=== PATIENT | female | born 1950 | race Caucasian/White ===

== ENCOUNTER → 2017-02-13 | Outpatient (CLI) | payer MEDICARE, BC, OTHER ==
[~2017-02-13] MED LIST: ASPI1TAB PO; CALCTAB29 PO; FLEC1TAB PO; FOSA70TA PO; GABA-282 PO; METO1TAB32 PO; MULT1TAB10 PO; PERC5TAB12 PO
--- NOTE | 2017-02-13 10:22 | REP ---
Chest two views HISTORY: preadmission Comparison: 07/23/2016 Minimal bilateral apical pleural thickening is present. The lungs are otherwise clear. The heart is normal in size. The pulmonary vasculature is normal in appearance. The bony structure is intact. IMPRESSION: No acute disease. Signed by Akin Soriano MD 02/13/2017 10:13 A
[2017-02-13 11:32] LABS: ANION GAP 9 MEQ/L (8-16); BLOOD UREA NITROGEN 20 MG/DL (7-18); CALCIUM LEVEL 9.5 MG/DL (8.8-10.2); CARBON DIOXIDE LEVEL 30 MEQ/L (21-32); CHLORIDE LEVEL 106 MEQ/L (98-107); GLOMERULAR FILTRATION RATE > 60.0 (>45); GLUCOSE, FASTING 79 MG/DL (80-110); POTASSIUM SERUM 4.2 MEQ/L (3.5-5.1); SODIUM LEVEL 145 MEQ/L (136-145)
== END ==
LOC: M LAB 09:37
PROVIDERS: ATTEND Orthopaedic Surgery
DX: Z01.818 Encounter for other preprocedural examination (principal); I51.9 Heart disease, unspecified

== ENCOUNTER 2017-02-27 07:41 | Inpatient (IN) | payer MEDICARE, BC, OTHER ==
--- NOTE | 2017-02-20 13:24 | HPE ---
DATE OF ADMISSION: 02/27/2017 Arrives today for preoperative history and physical for her continuing back discomfort and left leg radicular symptoms with neuro claudication. HISTORY OF PRESENT ILLNESS: This is a pleasant female with continuing back discomfort and left leg radiculopathy with known spinal stenosis and left lower extremity neuro claudication. The patient has consented for a left unilateral laminectomy L3-[address] Levar Parham. Medical optimization per Dr. [facility] group, which I am still awaiting documentation, but the patient states she has been cleared. States that she has also been cleared by cardiology. Her x-ray imaging is consistent with degenerative scoliosis, spondylosis and degenerative disc disease. MRI of the lumbar spine through [facility], 12/18/2016, showed severe canal stenosis at L3-4 with left paracentral intraforaminal disc extrusion causing left L3 nerve compression. ALLERGIES: NONE KNOWN TO DRUGS. MEDICATION LIST: Includes: - gabapentin 300 mg - Fosamax 70 mg - aspirin 81 mg - calcium plus D 315-200 mg unit - multivitamins - flecainide acetate 100 mg - metoprolol succinate ER 25 mg MEDICAL PROBLEM LIST: Includes: 1. Hypertension. 2. History of supraventricular tachycardia and chronic diastolic heart failure for which she was cleared by cardiology. This was cleared by Dr. Singleton. 3. Additionally, she has continuing low back discomfort with left leg neuro claudication with a history spinal stenosis. SURGICAL HISTORY: section, femoral hernia repair. FAMILY HISTORY: Positive for cancer, arthritis, hypertension, hypercholesteremia. SOCIAL HISTORY: She has never smoked, rarely consumes ethanol. Denies illicit drugs. REVIEW OF SYSTEMS: Denies chest pain, shortness of breath, dyspnea on exertion, fever, chills, malaise, upper respiratory, urinary tract symptoms. PHYSICAL EXAMINATION: Weight 168.8. Height 5, 7-1/4. Temperature 97.3. Blood pressure (BP) 118/72. Heart rate 76. Respirations 16. She is a pleasant, overweight, white female, in no acute distress. Alert and oriented times three. Mood and affect are appropriate. She is ambulating slow steady with favoring of the right lower extremity. No gross antalgia about the left. No gross deformities about the lower spine and lower extremities. Positive straight leg raise for pain and hamstring tension. Normocephalic. Lungs clear to auscultation. Chest rises symmetrically. Neck supple. Negative jugular venous distention (JVD) or bruits. Bowel sounds times four are soft, nontender. IMPRESSION: 1. Continuing symptomatic low back discomfort with L3-4 spinal stenosis left lower extremity, neuro claudication. 2. Patient consented for a left lumbar unilateral laminectomy L3-[address] Levar Parham/ 3. Medical optimization 02/18/2017, per Dr. Tejinder Heart, per patient, I am still awaiting physical documentation. 4. Cardiology clearance, per Dr. Singleton's office, which I did visualize. 5. Postoperative spine protocol. MTDD
[~2017-02-27] VITALS: Ht 172.7 cm; Wt 78.9 kg
[~2017-02-27 07:41] MED LIST changes: -PERC5TAB12 PO
[2017-02-27] MEDS ORDERED: ROCURONIUM BROMIDE 50 MG/5 ML VIAL/SYRINGE As Ordered ONE ×2 (08:45→11:55)
[2017-02-27] MEDS ORDERED: fentaNYL 100 MCG/2 ML INJECTION (J3010) As Ordered ONE (08:45)
[2017-02-27] MEDS ORDERED: dexameTHASONE 4 MG/ML 1ML VIAL (J1100) As Ordered ONE (08:45)
[2017-02-27] MEDS ORDERED: PROPOFOL 200 MG/20 ML VIAL As Ordered ONE (08:45)
[2017-02-27] MEDS ORDERED: LIDOCAINE 2% INJ 100 MG/5 ML SDV (FOR ANES.) As Ordered ONE (08:45)
[2017-02-27] MEDS ORDERED: MIDAZOLAM INJ 2 MG/2 ML VIAL (J2250) As Ordered ONE (08:46)
[2017-02-27] MEDS: METAMUCIL (PSYLLIUM) PACKET PO SCH (09:00)
[2017-02-27] MEDS: MOM 30ML SUSPENSION UDC PO SCH (09:00)
[2017-02-27] MEDS ORDERED: GABAPENTIN 300 MG CAP PO ONE (09:00)
[2017-02-27] MEDS ORDERED: PERCOCET 5MG/325MG TAB PO ONE (09:00)
[2017-02-27] MEDS ORDERED: CelecoXIB (CeleBREX) 100 MG CAP PO ONE (09:00)
[2017-02-27] MEDS ORDERED: BUPIVACAINE/EPIN 0.5% 30 ML VIAL As Ordered ONE (10:16)
[2017-02-27] MEDS ORDERED: BACITRACIN PWD 50,000 UNITS VIAL As Ordered ONE (10:16)
[2017-02-27] MEDS ORDERED: THROMBIN SOLN 20,000 UNITS KIT As Ordered ONE (10:16)
[2017-02-27] MEDS ORDERED: VANCOMYCIN HCL 500 MG/10 ML VIAL (J3370) As Ordered ONE (10:16)
[2017-02-27] MEDS ORDERED: ePHEDrine SULFATE 25 MG/5 ML(5MG/ML) SYRINGE As Ordered ONE ×2 (10:59→12:24)
[2017-02-27] MEDS ORDERED: BUPIVACAINE/EPIN 0.25% 30 ML VIAL As Ordered ONE (11:05)
[2017-02-27] MEDS ORDERED: GLYCOPYRROLATE INJ 0.2 MG/ML 2 ML VIAL As Ordered ONE ×2 (11:33→12:15)
[2017-02-27] MEDS ORDERED: PHENYLEPHRINE INJ 10MG/ML VIAL (J2370) As Ordered ONE (13:01)
[2017-02-27] MEDS ORDERED: PHENYLephrine HCL 500 MCG/5 ML (100MCG/ML) SYRINGE (J2370) As Ordered ONE (13:04)
[2017-02-27] MEDS ORDERED: HYDROmorphone HCL 2 MG/ML 1ML VIAL (J1170) As Ordered ONE (13:33)
[2017-02-27] MEDS ORDERED: ONDANSETRON 4MG/2ML VIAL (J2405) As Ordered ONE (13:33)
[2017-02-27] MEDS ORDERED: ONDANSETRON 4MG/2ML VIAL (J2405) IV PRN (15:00)
[2017-02-27] MEDS ORDERED: LR 1,000 ML IV SCH (15:00)
[2017-02-27] MEDS ORDERED: fentaNYL 100 MCG/2 ML INJECTION (J3010) IV PRN (15:00)
[2017-02-27] MEDS ORDERED: ACETAMINOPHEN TAB 650MG DOSE (2X325MG) PO PRN (15:15)
[2017-02-27] MEDS ORDERED: PROMETHAZINE INJ 25 MG/ML VIAL (J2550) IV PRN (15:15)
[2017-02-27 15:45] VITALS: BP 144/80
[2017-02-27] MEDS: D5W/0.45% SODIUM CHLORIDE 1,000 ML IV SCH (15:48)
[2017-02-27] MEDS: PERCOCET 5MG/325MG TAB PO PRN (15:48)
[2017-02-27] MEDS ORDERED: HYDROmorphone HCL 1 MG/ML SYRINGE (J1170) IV PRN ×2 (16:00)
[2017-02-27 16:15] VITALS: BP 121/57
[2017-02-27 17:15] VITALS: BP 126/72
[2017-02-27 18:15] VITALS: BP 128/72
--- NOTE | 2017-02-27 19:07 | RO ---
DATE OF PROCEDURE: 02/27/2017 PREOPERATIVE DIAGNOSIS: Lumbar spinal stenosis with left lower extremity, primarily neurogenic claudication and facet arthropathy at L3-L4. POSTOPERATIVE DIAGNOSIS: Lumbar spinal stenosis with left lower extremity, primarily neurogenic claudication and facet arthropathy at L3-L4. PROCEDURE PERFORMED: L3 unilateral laminectomy including decompression of the thecal sac traversing and exiting nerve roots and contralateral over the horizon decompression, L4 left unilateral laminectomy additional level, L3-4 arthrodesis intertransverse posterior type, harvest and placement of left iliac crest morselized autograft through separate fascial incision, use of donor bone graft allograft morselized crushed cancellous 15 mL. SURGEON: Dr. Parham STAGE SETTING PAINTER APPRENTICE: Danny Alberts, TAMRA ANESTHESIA: General. ESTIMATED BLOOD LOSS: Less than 150 mL replaced with crystalloid. COMPLICATIONS: No complications. INDICATION: 66-year-old female with a discomfort radiating down primarily the left lower extremity along with significant facet arthropathy and spinal stenosis at 3-4 as well as milder diffuse degenerative changes. She has elected for operative intervention. Consent reviewed in detail with the patient including a rickey discussion of the pathology involved the procedure proposed and the rationale for the procedure proposed, alternatives including doing a wider surgery or using instrumentation for the fusion. We talked about risks including but not limited to pain, failure, infection, bleeding blood loss, incomplete relief of symptoms, need for additional surgery. Nerve injury and other issues. The patient agreed to proceed. OPERATIVE COURSE: Identified in the holding area, site and side verified brought to the operating room. General endotracheal anesthesia was administered. She was positioned in the usual fashion on the Maxime frame for exposure of the lumbar spine. Next, once I and the solar installer pv were comfortable with the patient's positioning, we began this and the operative procedure. Time-out was accomplished. I stood on the patient's left. Mr. Alberts primarily on the patient's right. The incision was based on palpation of the iliac crest and posterior elements. The incision was outlined with a marking pen infiltrated with 0.25% Marcaine with epinephrine and made a #10 blade knife. This first portion of the procedure was accomplished using a headlamp and loupe magnification. The dissection continued to the posterior lumbar fascia which was reflected off spinous processes of L3 and L4 down to the L3-4 interspace exposing the L3-4 lamina. That is on the left side. Next, the drill was utilized to create a divot in the posterior lamina of L3. Wood Todd probe was placed in the divot and then we obtained a cross-table lateral x-ray to verify our position. Next, at this stage we verified the 3-4 level. We extended dissection on the right side at 3-4 over the right facet and exposing the transverse processes on the right side. Shanique Aristeo utilizing the retractor to assist in exposure. The transverse processes on the right at 3 and 4 were exposed. The transverse processes on the left at 3-4 were exposed. Next, once this was accomplished, posterior lamina was removed at its posterior aspect using a Leksell and this was retained for bone graft. Next, at this stage the operating microscope was brought in for additional portion of the procedure. The operating microscope facilitated continued participation by Mr. Alberts as well as safe use of the high-speed bur. The high-speed bur was then utilized to implement the left unilateral laminectomy of L3 extending superiorly well beyond the bare area of L3, undercutting the L3 spinous process and extending into the L4 lamina through the bare area of L4 undercutting the L4 spinous process. I was careful to preserve the pars interarticularis on the left side at 3-4 as I debrided the hypertrophic degenerative facet which was quite mobile. Next, once the bony decompression was accomplished I then utilized curettes and Merritt-Brewer to remove ligamentum flavum exposing the thecal sac and decompressing the thecal sac and in the midline into the left. Once was accomplished I decompressed the lateral recess using #2 Kerrison's as well as curved Kerrison's on the patient's left side. Next, I positioned the operating table to tilt and position the microscope to allow contralateral decompression of horizon. I utilized a 3-0 Chitra curette as well as #2 Kerrison's to remove hypertrophic ligamentum flavum on the right side in the subarticular space. I probed this area and the neural foramina using a Wood Todd probe this was accomplished bilaterally. The decompression was quite significant. We inspected for CSF leak and none were observed. Irrigation was accomplished. Thrombin Gelfoam was placed over the thecal sac and then I turned my attention to obtaining iliac crest bone graft. Iliac crest bone graft was obtained by myself through separate fascial incision over the left iliac crest. This was made with the Bovie cautery while Mr. Alberts retracted with Hiram . Next, the posterior superior iliac spine was closed removed using Leksell. I then utilized Terry curettes to remove cancellus bone. This was set aside. Next, the defect was packed with dry Gelfoam closed with interrupted stitch at the posterior fascia. Next, we again exposed the transverse processes at 3 and 4, first on the patient's left side. Mr. Alberts utilizing Hiram. We decorticated the transverse processes and facet complex with the high-speed bur and placed the iliac crest bone graft. Next, local graft has been harvested and these bur milling were mixed with 15 mL of crushed cancellus bone and a small amount of this was placed over the transverse processes as well on the left. Next, on the right side. We similarly exposed and placed iliac crest bone graft directly over the transverse processes of 3 and 4 on the patients right side. Next, the facet was also decorticated using Leksell and the high-speed bur and we placed the remaining local and donor bone graft over the facette and in the interlaminar space as well on the patient's right. Next, irrigation was accomplished. All Gelfoam was removed at conclusion the case. All counts were correct. Next, posterior lumbar fascia was then reapproximated with interrupted stitch. Deep dermis was approximated with interrupted stitch. Pernio dressing utilized on skin. The patient was moved to the hospital bed in the supine position, extubated, moved to the recovery room in good condition and was appreciated to be in no distress, oriented and moving all four extremities at the conclusion of case for further details please refer to the medical record. Mr. Alberts was present and participated in the entirety of the case in the capacity of registered nurse first assistant.
[2017-02-27 19:15] VITALS: BP 123/63
--- NOTE | 2017-02-27 19:15 | CR ---
DATE OF CONSULTATION: 02/27/2017 PRIMARY CARE PHYSICIAN: Dr. Mann Heart HOSPITALIST: Dr. Jass Ramos ATTENDING PHYSICIAN: Dr. Parham HOSPITALIST CONSULT: Postop patient underwent a spinal surgery today by Dr Parham. Patient is followed by Dr. Mann Heart, [facility] [place]. Medical history most significant for SVT status-post ablation 09/2016. KNIFE SETTER: Chelsea Rivero. The patient was cleared by cardiology on 02/03/2017. She has no postoperative chest pain, shortness of breath, or dyspnea. She feels well. PHYSICAL EXAMINATION: VITALS: Blood pressure 126/72, pulse 77, respiratory rate 14, 97% oxygen saturation. GENERAL: She is alert and conversant. LUNGS: Clear. HEART: Regular rate and rhythm. No murmur. ABDOMEN: Soft and nontender. NEUROLOGIC: Nonfocal. LABS: Preoperative labs. IMPRESSION: Patient is stable postoperatively. History of SVT status-post ablation. I advised continued metoprolol succinate 25 mg daily, flecainide 100 mg twice a day. Followup lab work with electrolytes and magnesium level ordered for the morning. Dr. Ramos with assume her medical care in the morning. I have entered another consultation request so the patient is listed under the correct medical service.
[2017-02-27 20:15] VITALS: BP 130/64
[2017-02-27] MEDS: FLECAINIDE 100 MG TABLET PO SCH (22:03)
[2017-02-27] MEDS: GABAPENTIN 300 MG CAP PO SCH (22:03)
[2017-02-28] MEDS: D5W/0.45% SODIUM CHLORIDE 1,000 ML IV SCH ×2 (03:01→11:15)
[2017-02-28] MEDS: PERCOCET 5MG/325MG TAB PO PRN ×3 (03:01→14:20)
[2017-02-28 07:52] LABS: MEAN CORPUSCULAR HGB CONC 33.9 g/dl (32.0-36.5); MEAN CORPUSCULAR VOLUME 97.3 fl (80.0-96.0); RED CELL DISTRIBUTION WIDTH 12.6 % (11.5-14.5); WHITE BLOOD COUNT 13.6 K/mm3 (4.0-10.0)
[2017-02-28 08:22] LABS: ANION GAP 7 MEQ/L (8-16); BLOOD UREA NITROGEN 10 MG/DL (7-18); CALCIUM LEVEL 8.3 MG/DL (8.8-10.2); CARBON DIOXIDE LEVEL 30 MEQ/L (21-32); CHLORIDE LEVEL 109 MEQ/L (98-107); CREATININE FOR GFR 0.72 MG/DL (0.55-1.02); GLOMERULAR FILTRATION RATE > 60.0 (>45); GLUCOSE, FASTING 114 MG/DL (80-110); MAGNESIUM LEVEL 2.1 MG/DL (1.8-2.4); POTASSIUM SERUM 4.4 MEQ/L (3.5-5.1); SODIUM LEVEL 146 MEQ/L (136-145)
[2017-02-28] MEDS ORDERED: PERC5TAB12 PO (08:22)
[2017-02-28] MEDS: FLECAINIDE 100 MG TABLET PO SCH (08:29)
[2017-02-28] MEDS: GABAPENTIN 300 MG CAP PO SCH (08:32)
[2017-02-28] MEDS: METAMUCIL (PSYLLIUM) PACKET PO SCH (08:33)
[2017-02-28] MEDS: MOM 30ML SUSPENSION UDC PO SCH (08:34)
[2017-02-28] MEDS ORDERED: METOPROLOL SUCC *XL* 25MG TAB (TopROL *XL*) PO SCH (09:00)
--- NOTE | 2017-02-28 15:35 | REP ---
Clinical: Lumbar stenosis. Technique: Portable intraoperative cross-table view. Findings: Initial view performed at 12:08 p.m. demonstrates probe via posterior approach at the L3-4 level. Signed by Zach Bird MD 02/28/2017 03:26 P
--- NOTE | 2017-03-12 10:36 | DSES ---
DATE OF ADMISSION: 02/27/2017 DATE OF DISCHARGE: 02/28/2017 ATTENDING PHYSICIAN: Dr. Levar Parham. ADMISSION DIAGNOSIS: Lumbar spinal stenosis L3-4 and neurogenic claudication left lower extremity. OTHER DIAGNOSES: Hypertension. Supraventricular tachycardia. Heart failure. DISCHARGE DIAGNOSIS: Lumbar spinal stenosis L3-4 and neurogenic claudication left lower extremity status post left L3-4 unilateral laminectomy and posterior fusion in situ at L3-4. HISTORY: This is a pleasant female patient with progressively worsening back pain. She failed to improve with conservative management to include epidural steroid injections, physical therapy and activity modification. She elected for surgery for her continued symptoms. She was admitted for elective surgery. OPERATION PERFORMED: Left at L3-4 unilateral laminectomy and posterior lateral fusion in situ L3-4 bilaterally. HOSPITAL COURSE: The patient was admitted on day of surgery and underwent the above-listed procedure and there was no complications. She did well in the postoperative. On day of discharge she was doing well weightbearing as tolerated on the lower extremities. She will use her back brace as directed. She was given instructions to include but not limited to wound monitoring, activity limitations and the use of the back brace. She will resume her preoperative medications and diet. She will use oral pain medications for pain control. She will follow up in our office in 7-10 days for surgical followup. Please refer to the medical record for further details.
== END 2017-02-28 15:15 | disposition home or self-care (01) | DRG 460 ==
LOC: M OR 07:41 → M MS5PR 15:35
PROVIDERS: ADMIT Orthopaedic Surgery; ATTEND Orthopaedic Surgery
PROC: 01NB0ZZ Release Lumbar Nerve, Open Approach (ICD-10-PCS; 2017-02-27)
PROC: 0SG1071 Fusion of 2 or more Lumbar Vertebral Joints with Autologous Tissue Substitute, Posterior Approach, Posterior Column, Open Approach (ICD-10-PCS; principal; 2017-02-27 10:00)
DX: M48.06 Spinal stenosis, lumbar region (principal); I50.32 Chronic diastolic (congestive) heart failure; M51.16 Intervertebral disc disorders with radiculopathy, lumbar region; I11.0 Hypertensive heart disease with heart failure; Z79.82 Long term (current) use of aspirin

== ENCOUNTER → 2020-03-30 | Outpatient (CLI) | payer SELFPAY ==
[~2020-03-30] MED LIST changes: -ASPI1TAB PO; +ASPI81TA26 PO; -GABA-282 PO; +GABA-843 PO; +PERC5TAB12 PO
== END ==
LOC: M LABSMTC 14:18
PROVIDERS: ATTEND Pediatrics
DX: Z20.828 Contact with and (suspected) exposure to other viral communicable diseases (principal)

== ENCOUNTER → 2022-05-07 | Outpatient (CLI) | payer MEDICARE, BC, OTHER ==
[~2022-05-07] MED LIST changes: +ALEN70TA87 PO; -FOSA70TA PO; +GABA-282 PO; -GABA-843 PO
== END ==
LOC: M SLEEP 20:00
PROVIDERS: ATTEND Nurse Practitioner Family
DX: R06.83 Snoring (principal); R40.0 Somnolence